=== PATIENT | female | born 1995 | race Caucasian/White ===

== ENCOUNTER 2024-08-13 20:10 | Emergency (ER) | payer MEDICAID, SELFPAY ==
[2024-08-13 20:13] VITALS: BP 115/76; PULSE 87; RESP 20; TEMP 36.4; O2SAT 99
--- NOTE | 2024-08-13 20:21 | ED.GENADUL_ITS ---
Discharge Plan Disposition Patient Disposition: Home Condition: Stable Discharge Details Clinical Impression: Cellulitis of forearm, right ED Provider: Shiv Gary Home Meds and New Rx's Prescriptions: New amoxicillin-pot clavulanate 875-125 mg tablet 1 tab PO BID Qty: 14 0RF Discharge Instructions Additional Instructions: You are being treated for a skin infection. Take the antibiotic as prescribed. Using warm compresses on the area can help. If you are not improving this week follow-up with either your primary care provider or express care. If you feel significantly more ill or have new symptoms such as high fevers return to emergency department for reevaluation. HPI General Mode of arrival: ambulatory . Date/Time Provider Initiated Documentation: 08/13/24 20:13 . Limitations to Documentation: no limitations . Information obtained by: patient . History of Present Illness 29 year old F presents to the emergency department with the chief complaint of right forearm redness, described as moderate, and is localized to the right and upper extremity. and it has been constant. No relieving factors improve symptom(s), No exacerbating factors reported . Patient notes no other symptoms.. Patient did receive the following treatments prior to arrival, none Related Data Home Medications ?Medication ?Instructions ?Recorded ?Confirmed amoxicillin 875 mg-potassium 1 tab PO BID #14 tabs 08/13/24 clavulanate 125 mg tablet Previous Rx's ?Medication ?Instructions ?Recorded amoxicillin 875 mg-potassium 1 tab PO BID #14 tabs 08/13/24 clavulanate 125 mg tablet Allergies Allergy/AdvReac Type Severity Reaction Status Date / Time No Known Allergies Allergy Unverified 08/13/24 20:17 General Stated Complaint: InsectBite MALLY: 4 Review of Systems All systems reviewed & are unremarkable except as noted in HPI and below Constitutional Constitutional: Denies chills and Denies fever(s) Integumentary/Breasts Skin/Breast: Reports rash Psychiatric Psychiatric: Denies depression Exam Const General: no acute distress Orientation: alert HENMT Head: normal to inspection Ears: external ears normal General nose exam: external nose normal Mouth: moist mucous membranes Eyes General: appearance normal, both eyes and all related structures Neck Neck: normal visual inspection Resp Effort & Inspection: normal respiratory effort and able to speak in complete sentences Cardio Rate: regular rate Skin General skin exam: erythema Neuro General: patient alert and patient oriented x3 Psych Mental Status: mental status grossly normal Course Vital Signs Vital signs: Vital Signs Temperature 36.4 C 08/13/24 20:13 Pulse 87 08/13/24 20:13 Respiratory Rate 20 08/13/24 20:13 Blood Pressure 115/76 08/13/24 20:13 Pulse Oximetry 99 08/13/24 20:13 Temperature 36.4 C 08/13/24 20:13 Pulse 87 08/13/24 20:13 Respiratory Rate 20 08/13/24 20:13 Blood Pressure 115/76 08/13/24 20:13 Blood Pressure Position Sitting 08/13/24 20:13 Pulse Oximetry 99 08/13/24 20:13 Oxygen Delivery Method Room Air 08/13/24 20:13 Oxygen Flow Rate 0 08/13/24 20:13 Medical Decision Making 29-year-old female who denies any chronic medical problems comes in with 1 day of right forearm redness. She has a wrist wound in the right anterior mid forearm which appears to have been some type of insect bite. The patient. She says she has had spreading redness from the wounds and so came here for an evaluation. She denies any fevers, chills, severe pain. She is well-appearing on exam in no distress. Hemodynamically stable. She has a 0.5 cm superficial abrasion of the right mid forearm with 3 to 4 cm of surrounding erythema. There is no fluctuance or drainage. Exam findings are consistent with a cellulitis, no findings on exam or history to suggest abscess or nec fasc or sepsis. Will start her on Augmentin and advised to follow-up with either express care or PCP if not improving and return precautions given. Quality:[facility] Health Related Social Needs: No Data to Display [facility] All Active Problems (Updated 08/13/24 @ 20:22 by Shiv Gary MD) Cellulitis of forearm, right (Acute) Social History Smoking risk assessment performed?: No PAWSS Have you Been Recently Intoxicated or Drunk Within the Last 30 days?: No Have you Ever Experienced Previous Episodes of Alcohol Withdrawal?: No Have you ever Experienced Withdrawal Seizures?: No Have you ever Experienced Delirium Tremens(DT)s?: No Have you ever undergone Alcohol Rehabilitation Treatment (i.e, inpt ot outpatient treatment programs)?: No Have you ever Experienced Blackouts?: No Have you ever Combined Alcohol with other Downers within the last 90 days?: No Have you ever Combined Alcohol with any other Substance of Abuse during the last 90 days?: No Positive Blood Alcohol level on Presentation? [PCS.BAL]: No Evidence of Increased Autonomic Activity (i.e. HR>120, tremor, sweating, agitation, nausea)?: No Result: 0
[2024-08-13] MEDS: Amoxicillin 875/Clav. 125 TAB PO (20:36)
== END 2024-08-13 20:39 | disposition home or self-care (01) ==
PROVIDERS: Emergency Provider Emergency Medicine
DX: L03.113 Cellulitis of right upper limb (principal)
CPT/HCPCS: 99283